=== PATIENT | male | born 1990 | race Caucasian/White ===

== ENCOUNTER 2020-08-05 01:08 | Emergency (ER) | payer SELFPAY ==
[~2020-08-05] VITALS: Ht 172.7 cm; Wt 95.5 kg
[2020-08-05 01:20] VITALS: TEMP 98.4
[2020-08-05 01:40] LABS: BASO % 0.4 % (0.0-2.0); EOS # 0.1 (0.0-0.7); EOS % 1.2 % (0-4.0); GRAN # 2.5 (1.4-6.5); GRAN % 50.6 % (42.2-75.2); HEMATOCRIT 43.8 % (42.0-52.0); LYMPH # 1.6 (1.2-3.4); LYMPH % 32.1 % (20.0-51.0); MEAN CELL VOLUME 91 fl (80.0-100.0); MEAN CORPUSCULAR HEMOGLOBIN 31 pg (27.0-31.0); MEAN CORPUSCULAR HGB CONC 34 g/dl (33.0-37.0); MEAN PLATELET VOLUME 10.3 fl (7.4-10.4); MONO # 0.8 (0.1-0.6); MONO % 15.5 % (1.7-9.3); PLATELET COUNT 165 K/mm3 (130-400); RED BLOOD COUNT 4.79 M/mm3 (4.20-5.60); REDCELL DISTRIBUTION WIDTH-CV 12.6 % (11.5-14.5)
[2020-08-05 01:47] LABS: ALBUMIN 4.1 gm/dL (3.5-5.0); BILIRUBIN,TOTAL 0.1 mg/dL (0.0-1.0); CALCIUM 8.8 mg/dL (8.4-10.2); CREATININE, serum 0.69 (0.66-1.25); POTASSIUM 3.8 mmol/L (3.4-5.0); TOTAL PROTEIN 7.4 gm/dL (6.4-8.2)
[2020-08-05 02:09] LABS: PH 6 (5-8); SQUAMOUS EPITHELIAL None Seen /hpf; URINE APPEARANCE Clear; URINE BACTERIA None Seen /hpf; URINE BILIRUBIN Negative (NEGATIVE); URINE BLOOD Negative (NEGATIVE); URINE COLOR Yellow; URINE GLUCOSE Negative (NEGATIVE); URINE KETONE Trace (NEGATIVE); URINE LEUKOCYTE ESTERASE Negative (NEGATIVE); URINE NITRATE Negative (NEGATIVE); URINE PROTEIN(semi-quant) Negative (NEGATIVE); URINE RBC 0-2 /hpf; URINE WBC 0-2 /hpf
[2020-08-05] MEDS ORDERED: ZOFRAN ODT4 MG PO (02:09)
[2020-08-05] MEDS ORDERED: PEPCID 20MG TAB20 MG PO (02:09)
[2020-08-05 02:22] LABS: COLLECTION METHOD CLEAN CATCH
[2020-08-05] MEDS ORDERED: AMOXICILLIN 8751 TAB PO (02:57)
[2020-08-05 03:09] VITALS: BP 112/70; PULSE 74
== END 2020-08-05 03:12 | disposition home or self-care (01) ==
LOC: COL.ER 01:08
PROVIDERS: Emergency Medicine
DX: K57.32 Diverticulitis of large intestine without perforation or abscess without bleeding (principal); K21.9 Gastro-esophageal reflux disease without esophagitis; F17.210 Nicotine dependence, cigarettes, uncomplicated
CPT/HCPCS: J0500; J2405; J7030; Q9967

== ENCOUNTER 2023-03-27 19:54 | Emergency (ER) | payer OTHER ==
[~2023-03-27] VITALS: Ht 172.7 cm; Wt 97.7 kg
[~2023-03-27 19:54] MED LIST: AMOXICILLIN 8751 TAB PO; CIPRO 500MG TA500 MG PO; FLAGYL500 MG PO; FLEXERIL 1010 MG/TAB PO; NAPROSYN500 MG PO; PEPCID 20MG TAB20 MG PO; PRILOSEC 20MG20 MG PO; ROXICODONE 55 MG/TAB PO; ZOFRAN ODT4 MG PO
[2023-03-27 20:07] VITALS: TEMP 98.6
[2023-03-27 21:41] LABS: BASO % 0.3 % (0.0-2.0); EOS # 0.1 K/mm3 (0.0-0.7); EOS % 0.8 % (0.0-4.0); GRAN # 4.6 K/mm3 (1.4-6.5); GRAN % 60.4 % (42.2-75.2); HEMATOCRIT 47.6 % (42.0-52.0); HEMOGLOBIN 16.7 g/dl (13.5-18.0); LYMPH # 2.3 K/mm3 (1.2-3.4); LYMPH % 29.8 % (20.0-51.0); MEAN CELL VOLUME 92 fl (80.0-100.0); MEAN CORPUSCULAR HEMOGLOBIN 32 pg (27-31); MEAN CORPUSCULAR HGB CONC 35 g/dl (33.0-37.0); MEAN PLATELET VOLUME 9.9 fl (7.4-10.4); MONO # 0.6 K/mm3 (0.1-0.6); MONO % 8.4 % (1.7-9.3); PLATELET COUNT 239 K/mm3 (130-400); RED BLOOD COUNT 5.15 M/mm3 (4.20-5.60); REDCELL DISTRIBUTION WIDTH-CV 12.3 % (11.5-14.5)
[2023-03-27 22:00] LABS: ALANINE AMINOTRANSFERASE 46 U/L (0-55); ALBUMIN 3.7 gm/dL (3.5-5.0); ALKALINE PHOSPHATASE 79 U/L (40-150); ANION GAP 10 mmol/L (7-16); AST,SGOT 25 U/L (5-34); BILIRUBIN,TOTAL 0.2 mg/dL (0.2-1.2); BLOOD UREA NITROGEN 10 mg/dL (9-21); CALCIUM 9.1 mg/dL (8.4-10.2); CARBON DIOXIDE 23 mmol/L (22-29); CHLORIDE 110 mmol/L (98-107); CREATININE, serum 0.92 mg/dL (0.72-1.25); GLUCOSE 111 mg/dL (70-99); POTASSIUM 4.5 mmol/L (3.5-4.5); SODIUM 143 mmol/L (136-145); TOTAL PROTEIN 7.4 gm/dL (6.2-8.1)
[2023-03-27 22:06] LABS: TROPONIN-I < 0.010 ng/mL (0.00-0.033)
[2023-03-27] MEDS ORDERED: PREDNISONE20 MG PO (23:36)
[2023-03-27 23:49] VITALS: BP 154/77; PULSE 78
[2023-03-31] MEDS ORDERED: PROAIR HFA0.09 MG/AC IH (19:10)
[2023-03-31] MEDS ORDERED: ZOFRAN ODT4 MG PO (19:10)
[2023-03-31] MEDS ORDERED: PEPCID 20MG TAB20 MG PO (19:10)
== END 2023-03-27 23:58 | disposition home or self-care (01) ==
LOC: COL.ER 19:54
PROVIDERS: Nurse Practitioner
DX: J20.9 Acute bronchitis, unspecified (principal); F17.210 Nicotine dependence, cigarettes, uncomplicated
CPT/HCPCS: J2930; J7030; Q9967

== ENCOUNTER 2023-11-08 11:02 | Emergency (ER) | payer SELFPAY ==
[~2023-11-08] VITALS: Ht 172.7 cm; Wt 90.9 kg
[~2023-11-08 11:02] MED LIST changes: +NORCO 325 MG-51 TAB PO; +PREDNISONE20 MG PO; +PROAIR HFA0.09 MG/AC IH
[2023-11-08 12:04] VITALS: BP 131/79; PULSE 82; TEMP 98.1
== END 2023-11-08 12:04 | disposition home or self-care (01) ==
LOC: COL.ER 11:02
DX: R19.7 Diarrhea, unspecified (principal); B34.9 Viral infection, unspecified

== ENCOUNTER 2024-02-19 23:13 | Emergency (ER) | payer SELFPAY ==
[~2024-02-19] VITALS: Ht 172.7 cm; Wt 104.5 kg
[~2024-02-19 23:13] MED LIST changes: +POLYMYXIN B/TRIMETH OD
[2024-02-19 23:25] VITALS: TEMP 98.4
[2024-02-19 23:41] LABS: COLLECTION METHOD CLEAN CATCH
[2024-02-19 23:47] LABS: BASO % 0.5 % (0.0-2.0); EOS # 0.1 K/mm3 (0.0-0.7); EOS % 1.1 % (0.0-4.0); GRAN # 3.4 K/mm3 (1.4-6.5); GRAN % 54.1 % (42.2-75.2); HEMOGLOBIN 14.6 g/dl (13.5-18.0); LYMPH # 2.3 K/mm3 (1.2-3.4); MEAN CELL VOLUME 93 fl (80.0-100.0); MEAN CORPUSCULAR HEMOGLOBIN 32 pg (27-31); MEAN CORPUSCULAR HGB CONC 34 g/dl (33.0-37.0); MEAN PLATELET VOLUME 9.4 fl (7.4-10.4); MONO # 0.5 K/mm3 (0.1-0.6); MONO % 8.1 % (1.7-9.3); PLATELET COUNT 219 K/mm3 (130-400); RED BLOOD COUNT 4.64 M/mm3 (4.20-5.60); REDCELL DISTRIBUTION WIDTH-CV 12.4 % (11.5-14.5)
[2024-02-19 23:52] LABS: PH 5.5 (5.0-8.5); URINE APPEARANCE CLEAR (CLEAR/HAZY); URINE BLOOD NEGATIVE (NEGATIVE); URINE COLOR YELLOW (YELLOW); URINE GLUCOSE NEGATIVE (NEGATIVE); URINE KETONE NEGATIVE (NEGATIVE); URINE NITRATE NEGATIVE (NEGATIVE); URINE PROTEIN(semi-quant) NEGATIVE (NEGATIVE); URINE UROBILINOGEN 0.2 E.U/dL (0.2-1.0)
[2024-02-20 00:07] LABS: ALANINE AMINOTRANSFERASE 46 U/L (0-55); ALBUMIN 3.8 g/dL (3.5-5.0); ALKALINE PHOSPHATASE 83 U/L (40-150); ANION GAP 8 mmol/L (7-16); AST,SGOT 15 U/L (5-34); BILIRUBIN,TOTAL 0.2 mg/dL (0.2-1.2); BLOOD UREA NITROGEN 10 mg/dL (9-21); CHLORIDE 109 mEq/L (98-107); CREATININE, serum 0.78 mg/dL (0.72-1.25); GLUCOSE 125 mg/dL (70-99); LIPASE 37 U/L (8-78); POTASSIUM 4.1 mEq/L (3.5-4.5); SODIUM 142 mEq/L (136-145); TOTAL PROTEIN 7.6 g/dl (6.2-8.1)
[2024-02-20 00:13] LABS: TROPONIN-I < 0.010 ng/mL (0.00-0.033)
[2024-02-20] MEDS ORDERED: Ketorolac 30 MG/ML VIAL IV ONE (00:15)
[2024-02-20] MEDS ORDERED: Iohexol 300 - 100 ML VIAL IV ONE (00:40)
[2024-02-20] MEDS ORDERED: NS 50 ML IV ONE (00:41)
[2024-02-20 01:55] VITALS: BP 124/78; PULSE 80
== END 2024-02-20 01:55 | disposition home or self-care (01) ==
LOC: COL.ER 23:13
PROVIDERS: Nurse Practitioner Primary Care
DX: R10.817 Generalized abdominal tenderness (principal); Z87.19 Personal history of other diseases of the digestive system
CPT/HCPCS: J1885; Q9967